=== PATIENT | female | born 1945 | race Caucasian/White ===

== ENCOUNTER 2018-02-09 22:55 | Observation (INO) | payer MEDICARE, OTHER ==
[~2018-02-09] VITALS: Ht 152.4 cm; Wt 65.6 kg
[~2018-02-09 22:55] MED LIST: ACET1TAB12 PO; ALBU8.5H8 IH; AUD IH; CLON0.5T12 PO; ESTR2TAB PO; FLUT1AER IH; LOSA50TA25 PO; OMEP40CA37 PO; ROPI3TAB5 PO; THEO400T3 PO; TIOT4MIS5 IH
[2018-02-09 23:18] LABS: BASOPHILS % (AUTO) 0.9 % (0.0-5.0); EOSINOPHILS % (AUTO) 3.2 % (0.0-8.0); HEMATOCRIT 37.4 % (36-48); LYMPHOCYTES % (AUTO) 27.9 % (21.0-51.0); MEAN CORPUSCULAR HEMOGLOBIN 28.7 pg (27.0-33.0); MEAN CORPUSCULAR HGB CONC 32.6 g/dL (32.0-36.0); NUCLEATED RED BLOOD CELLS 0.1 % (0.0-0.19); PLATELET COUNT (AUTO) 188 K/uL (130-400); RED BLOOD CELL COUNT(AUTO) 4.25 MIL/uL (4.00-5.50); RED CELL DISTRIBUTION WIDTH 14.9 % (11.0-15.5); WHITE BLOOD COUNT (AUTO) 7.4 K/uL (4.8-10.8)
[2018-02-09 23:30] LABS: CREATININE 1.1 mg/dL (0.5-1.5); POTASSIUM 3.4 mmol/L (3.5-5.1)
[2018-02-09 23:32] LABS: INR 0.93 (0.85-1.15); PARTIAL THROMBOPLASTIN TIME 27.6 SEC (26.3-35.5); PROTHROMBIN TIME 9.8 SEC (9.6-11.6)
[2018-02-09 23:41] LABS: ALBUMIN 3.5 g/dL (3.5-5.0); BILIRUBIN,TOTAL 0.4 mg/dL (0.2-1.0); TOTAL PROTEIN, SERUM 7.2 g/dL (6.0-8.3)
[2018-02-10] MEDS ORDERED: METHYLPREDNISOLONE SOD SUCC 40MG/ML 1ML ONE ×2 (01:17→23:31)
[2018-02-10] MEDS ORDERED: IPRATROPIUM/ALBUTEROL SULFATE 3 ML SOLUTION IH ONE (01:28)
[2018-02-10] MEDS ORDERED: ENOXAPARIN SODIUM 60 MG/0.6 ML SQ ONE (03:56)
[2018-02-10 05:30] VITALS: BP 159/78
[2018-02-10] MEDS ORDERED: IPRATROPIUM 0.5 MG/2.5 ML INH IH PRN (06:00)
[2018-02-10] MEDS ORDERED: MONT10TA24 PO (06:18)
[2018-02-10] MEDS ORDERED: ROPI4TAB6 PO (06:21)
[2018-02-10] MEDS ORDERED: BUDE10.2 IH (06:25)
[2018-02-10] MEDS ORDERED: SIMV40TA5 PO (06:25)
[2018-02-10 08:32] VITALS: BP 141/76
[2018-02-10] MEDS ORDERED: ACETAMINOPHEN-CODEINE 300/30MG TAB PO PRN (10:30)
[2018-02-10] MEDS: IPRATROPIUM 0.5 MG/2.5 ML INH IH SCH ×3 (10:51→23:20)
[2018-02-10 11:56] VITALS: BP 140/78
[2018-02-10] MEDS: ALBUTEROL SULFATE 0.083% 2.5 MG/3 ML INH IH SCH ×3 (12:00→23:20)
[2018-02-10] MEDS ORDERED: POTASSIUM CHLORIDE 20MEQ/100ML 100 ML IV PRN ×2 (13:30)
[2018-02-10] MEDS ORDERED: LIDOCAINE HCL-MPF 1% 2ML VIAL IVP PRN ×2 (13:30)
[2018-02-10] MEDS ORDERED: POTASSIUM CHLORIDE 10% ELIXIR 20 MEQ/15 ML UDCUP PO PRN (13:30)
[2018-02-10] MEDS ORDERED: IOHEXOL 350 MG/ML 100ML INFUS..BTL IV ONE (15:23)
[2018-02-10 16:49] VITALS: BP 142/72
[2018-02-10] MEDS: PANTOPRAZOLE SODIUM 40 MG TABLET.DR PO SCH (17:19)
[2018-02-10] MEDS: BUDESONIDE 0.5 MG/2 ML INH IH SCH (18:21)
[2018-02-10 20:00] VITALS: BP 148/85
[2018-02-10] MEDS ORDERED: SIMVASTATIN 20 MG TABLET PO SCH (21:00)
[2018-02-10] MEDS ORDERED: LOSARTAN 50 MG TABLET PO SCH (21:00)
[2018-02-10] MEDS ORDERED: MONTELUKAST SODIUM 10 MG TAB PO SCH (21:00)
[2018-02-10] MEDS ORDERED: ROPINIROLE HCL 1 MG TABLET PO SCH (21:00)
[2018-02-10] MEDS: POTASSIUM CHLORIDE 20 MEQ ERTAB PO PRN ×2 (21:22→23:33)
[2018-02-10] MEDS ORDERED: METHYLPREDNISOLONE SOD SUCC 40MG/ML 1ML IVP SCH (23:30)
[2018-02-11] VITALS: BP 122/61
[2018-02-11 03:39] VITALS: BP 107/54
[2018-02-11 04:29] LABS: HEMATOCRIT 37.4 % (36-48); MEAN CORPUSCULAR HEMOGLOBIN 28.7 pg (27.0-33.0); MEAN CORPUSCULAR HGB CONC 32.7 g/dL (32.0-36.0); MEAN CORPUSCULAR VOLUME 87.8 fL (79-99); PLATELET COUNT (AUTO) 189 K/uL (130-400); RED BLOOD CELL COUNT(AUTO) 4.25 MIL/uL (4.00-5.50); RED CELL DISTRIBUTION WIDTH 14.9 % (11.0-15.5); WHITE BLOOD COUNT (AUTO) 6.1 K/uL (4.8-10.8)
[2018-02-11 04:45] LABS: ALBUMIN 3.2 g/dL (3.5-5.0); BILIRUBIN,TOTAL 0.3 mg/dL (0.2-1.0); CREATININE 1.4 mg/dL (0.5-1.5); POTASSIUM 4.7 mmol/L (3.5-5.1); TOTAL PROTEIN, SERUM 6.7 g/dL (6.0-8.3)
[2018-02-11] MEDS: ALBUTEROL SULFATE 0.083% 2.5 MG/3 ML INH IH SCH ×2 (05:04→11:18)
[2018-02-11] MEDS: IPRATROPIUM 0.5 MG/2.5 ML INH IH SCH ×2 (05:04→11:18)
[2018-02-11] MEDS: BUDESONIDE 0.5 MG/2 ML INH IH SCH (05:16)
[2018-02-11 08:29] VITALS: BP 109/69
[2018-02-11] MEDS ORDERED: **HM**Theophylline Anhydrous (Theophylline) 400 MG PO SCH (09:00)
[2018-02-11] MEDS ORDERED: ESTRADIOL 0.5 MG TABLET PO SCH (09:00)
[2018-02-11] MEDS ORDERED: PREDNISONE 20 MG TABLET PO SCH (09:00)
[2018-02-11] MEDS: PANTOPRAZOLE SODIUM 40 MG TABLET.DR PO SCH (11:48)
[2018-02-11 12:49] VITALS: BP 102/52
== END 2018-02-11 14:08 | disposition home or self-care (01) ==
LOC: EDH 22:55 → EDHIP 02-10 04:08 → 3AH 02-10 04:56
PROVIDERS: ADMIT Internal Medicine; ATTEND Internal Medicine
DX: J44.1 Chronic obstructive pulmonary disease with (acute) exacerbation (principal); I47.1 Supraventricular tachycardia; E78.5 Hyperlipidemia, unspecified; I10 Essential (primary) hypertension; Z77.22 Contact with and (suspected) exposure to environmental tobacco smoke (acute) (chronic); Z87.891 Personal history of nicotine dependence; Z90.710 Acquired absence of both cervix and uterus; Z88.0 Allergy status to penicillin; Z88.5 Allergy status to narcotic agent; Z99.81 Dependence on supplemental oxygen; Z79.01 Long term (current) use of anticoagulants
CPT/HCPCS: 36415 ×2; 71045; 78582; 80053 ×2; 82550; 83874; 84484; 85025; 85027; 85378; 85610; 85730; 93005; 93970; 94640 ×8; 94664; 99285; A9540; A9558; G0378 ×34; J1650; J2920 ×2; Q9967

== ENCOUNTER 2018-03-25 08:06 | Day surgery (SDC) | payer MEDICARE, OTHER ==
[2018-03-25] VITALS (10 sets, daily range): BP systolic 116–152; BP diastolic 53–71
[~2018-03-25 08:06] MED LIST changes: -ALBU8.5H8 IH; +BUDE10.2 IH; -CLON0.5T12 PO; -FLUT1AER IH; +MONT10TA24 PO; -ROPI3TAB5 PO; +ROPI4TAB6 PO; +SIMV40TA5 PO
[2018-03-25] MEDS ORDERED: SODIUM CHLORIDE 0.9% 1000ML 1,000 ML IV ONE (08:24)
[2018-03-25] MEDS ORDERED: FENTANYL CITRATE PF 50 MCG/1 ML 2ML VIAL ONE (08:43)
[2018-03-25] MEDS ORDERED: MIDAZOLAM HCL 1 MG/ML 2ML VIAL ONE (08:44)
[2018-03-25 09:27] LABS: INR 0.89 (0.85-1.15); PARTIAL THROMBOPLASTIN TIME 27.1 SEC (26.3-35.5); PROTHROMBIN TIME 9.4 SEC (9.6-11.6)
== END 2018-03-25 16:30 | disposition home or self-care (01) ==
LOC: DAH 08:06
PROVIDERS: ATTEND Internal Medicine
DX: C34.31 Malignant neoplasm of lower lobe, right bronchus or lung (principal); J44.9 Chronic obstructive pulmonary disease, unspecified; I10 Essential (primary) hypertension; F32.9 Major depressive disorder, single episode, unspecified; F17.210 Nicotine dependence, cigarettes, uncomplicated; Z79.899 Other long term (current) drug therapy; Z82.49 Family history of ischemic heart disease and other diseases of the circulatory system
CPT/HCPCS: 32405; 36415; 71045 ×2; 77012; 85610; 85730; 87070; 88305; J2250; J3010; J7030; 99152

== ENCOUNTER 2019-01-05 20:48 | Inpatient (IN) | payer OTHER, MEDICARE | END 2019-01-09 19:00 | disposition home or self-care (01) | LOC: EDH 20:48 → EDHIP 22:47 → 2DH 23:44 | DX: J18.9 Pneumonia, unspecified organism (principal); J96.01 Acute respiratory failure with hypoxia; J44.0 Chronic obstructive pulmonary disease with (acute) lower respiratory infection; I47.1 Supraventricular tachycardia; J44.1 Chronic obstructive pulmonary disease with (acute) exacerbation; Z85.118 Personal history of other malignant neoplasm of bronchus and lung ==